=== PATIENT | male | born 1990 | race Two or more races ===

== ENCOUNTER 2017-01-05 17:05 | Emergency (ER) | payer SELFPAY ==
[~2017-01-05] VITALS: Ht 185.4 cm; Wt 77.1 kg
[2017-01-05] MEDS ORDERED: cefTRIAXone SOD 1,000 MG VL IM ONE (18:45)
[2017-01-05 19:47] VITALS: BP 133/86
== END 2017-01-05 19:48 | disposition home or self-care (01) ==
LOC: ER 17:09
DX: L01.00 Impetigo, unspecified (principal)
CPT/HCPCS: 96372; 99283; J0696

== ENCOUNTER 2017-07-20 20:40 | Emergency (ER) | payer SELFPAY ==
[~2017-07-20] VITALS: Ht 185.4 cm; Wt 67.7 kg
[2017-07-20 20:52] VITALS: BP 143/101
== END 2017-07-20 22:58 | disposition left against medical advice (07) ==
LOC: ER 20:40
DX: K08.89 Other specified disorders of teeth and supporting structures (principal); Z53.21 Procedure and treatment not carried out due to patient leaving prior to being seen by health care provider

== ENCOUNTER 2019-01-05 12:53 | Emergency (ER) | payer OTHER ==
[~2019-01-05] VITALS: Ht 185.4 cm; Wt 84.9 kg
[2019-01-05 14:58] VITALS: BP 127/92
[2019-01-05] MEDS ORDERED: KETOROLAC TROMETH 60MG/2ML VIAL IM ONE (15:30)
== END 2019-01-05 15:54 | disposition home or self-care (01) ==
LOC: ER 12:53
DX: S52.611A Displaced fracture of right ulna styloid process, initial encounter for closed fracture (principal); S60.211A Contusion of right wrist, initial encounter; M54.6 Pain in thoracic spine; R51 Headache; W01.198A Fall on same level from slipping, tripping and stumbling with subsequent striking against other object, initial encounter; Y93.89 Activity, other specified; Y92.89 Other specified places as the place of occurrence of the external cause; Y99.8 Other external cause status
CPT/HCPCS: 29125; 73030; 73110; 96372; 99283; J1885

== ENCOUNTER 2021-01-20 22:46 | Emergency (ER) | payer OTHER ==
[~2021-01-20] VITALS: Ht 182.9 cm; Wt 68.0 kg
[2021-01-20] MEDS ORDERED: diazePAM 5 MG TAB PO ONE (23:00)
[2021-01-21 00:24] LABS: Potassium 3.5 mmol/L (3.5-5.1)
[2021-01-21 00:28] LABS: Albumin 4.2 g/dL (3.4-5.0); BUN/Creatinine Ratio 7.7; Calcium 9.3 mg/dL (8.5-10.1)
[2021-01-21 00:30] LABS: Salicylate < 1.7 mg/dL (2.8-20.0)
[2021-01-21 00:34] LABS: Bilirubin, Total 1.2 mg/dL (0.2-1.0)
[2021-01-21 00:46] LABS: Acetaminophen < 2.0 ug/mL (10-30)
[2021-01-21 00:49] LABS: Mean Corpuscular Hgb Conc. 35.3 g/dL (32.0-36.0); Red Blood Cells 4.46 10^6/uL (4.5-5.90)
[2021-01-21 00:51] LABS: Basophils # (auto) 0.1 10 ^3/uL (0-0.2); Eosinophils # (auto) 0 10 ^3/uL (0-0.8); Eosinophils % (auto) 0.4 % (0.0-7.0); Hematocrit 45.3 % (41.0-53.0); Lymphocytes # (auto) 2.6 10 ^3/uL (0.4-5.4); Lymphocytes % (auto) 49.7 % (10.0-50.0); Mean Corpuscular Hemoglobin 35.9 pg (28.0-32.0); Mean Corpuscular Volume 101.6 fL (80.0-100.0); Monocytes # (auto) 0.7 10 ^3/uL (0-1.3); Monocytes % (auto) 13.6 % (0.0-12.0); Neutrophils # (auto) 1.8 10 ^3/uL (1.6-8.6); Neutrophils % (auto) 34.3 % (37.0-80.0); Nucleated Red Blood Cells % 0.1 %; Platelet Count (auto) 174 10^3/uL (140-450); Red Cell Distribution Width 13.9 % (11.8-14.3); White Blood Cell 5.3 10^3/uL (4.4-10.8)
[2021-01-21 00:54] VITALS: BP 110/59
== END 2021-01-21 01:01 | disposition home or self-care (01) ==
LOC: ER 22:46 → EDBD 22:46 → ER 01-21 01:01
DX: F10.139 Alcohol abuse with withdrawal, unspecified (principal); Y90.8 Blood alcohol level of 240 mg/100 ml or more
CPT/HCPCS: 36415; 80053; 80320; 80329; 85025; 85049